=== PATIENT | male | born 1950 | race African-American/Black ===

== ENCOUNTER 2019-04-12 08:17 | Inpatient (IN) ==
[2019-04-12 09:50] LABS: Basophils % 0.7 % (0.0-0.8); Eosinophils # 0.1 10*3/uL (0.0-0.87); Eosinophils % 1.5 % (0.00-10.9); Hematocrit 41.5 VOL% (42.0-52.0); Hemoglobin 13.9 GM/DL (14.0-18.0); Immature Granulocytes % 0.7 %; Immature Granulocytes Absolute 0.03 #; Lymphocytes # 1.7 10*3/uL (1.4-4.0); Lymphocytes % 38.1 % (21.2-54.2); Mean Corpuscular HGB Conc 33.5 GM/DL (32-36); Mean Corpuscular Volume 91.8 FL (87-102); Monocytes % 9.7 % (1.7-12.7); Neutrophils % 49.3 % (38.7-73.9); Platelet Count 273 T/CUMM (130-400); Red Blood Count 4.52 MC/CUMM (3.8-5.5); Red Cell Distribution Width 13.2 % (9.3-17.3); White Blood Count 4.5 T/CUMM (4-12)
[2019-04-12 10:00] LABS: INR 0.9; PT Patient Result 9.7 SECS (9.6-12.2); Partial Thromboplastin Time 24.1 SECS (20.8-36.0)
[2019-04-12 10:30] LABS: Alanine Aminotransferase 40 U/L (16-61); Albumin 3.2 G/DL (3.4-5.0); Alkaline Phosphatase 88 U/L (45-117); Amylase 58 U/L (25-115); Aspartate Amino Transferase 16 U/L (0-37); Bilirubin,Total < 0.39 MG/DL (0.2-1.0); Blood Urea Nitrogen 12 MG/DL (7-18); Calcium 8.9 MG/DL (8.5-10.1); Estimated Glom Filtration Rate 109 ML/MIN; Glucose 216 MG/DL (74-106); Osmolality,Calculated 292.8 MOS/KG (273-304); Total Protein 7.4 G/DL (6.4-8.3)
[2019-04-12 10:38] LABS: Thyroid Stimulating Hormone 0.338 uIU/ml (0.358-3.74)
[2019-04-12 10:48] LABS: Troponin I < 0.015 NG/ML (0.00-0.045)
[2019-04-12 10:58] LABS: Acetaminophen < 2.0 UG/ML (10-30); Salicylate < 2.8 MG/DL (2.8-20)
[2019-04-12 12:08] LABS: Apearance,Urine Clear (Clear); Bilirubin,Urine Negative (Negative); Blood, Urine NEGATIVE (Negative); Glucose,Urine (UA) 500 mg/dL (Negative); Ketones,Urine Negative (Negative); Mucus,Urine Occasional /LPF (Occasional); Nitrite,Urine Positive (Negative); Protein,Urine 30 MG/DL; RBC,Urine 7 /HPF (0-4); Squamous Epithelial Cell,Urine Occasional /HPF (0-10); Urine Color Yellow (Yellow); WBC,Urine 4 /HPF (0-6)
[2019-04-12 12:28] LABS: Barbiturates Screen,Urine Negative (Negative); Benzodiazepines Screen,Urine Negative (Negative); Cannabinoid Screen,Urine Negative (Negative); Opiate Screen,Urine Negative (Negative); Phencyclidine Screen,Urine Negative (Negative)
[2019-04-12] MEDS ORDERED: hydrOXYzine HCL 25 MG/1 ML VIAL IM PRN (12:44)
[2019-04-12] MEDS ORDERED: HydrOXYzine PAMOATE 25 MG CAPSULE PO PRN (12:44)
[2019-04-12] MEDS ORDERED: ACETAMINOPHEN 325 MG TABLET PO PRN (12:47)
[2019-04-12] MEDS ORDERED: DOCUSATE SODIUM 100 MG CAPSULE PO PRN (12:47)
[2019-04-12] MEDS ORDERED: ONDANSETRON 4 MG/2 ML VIAL IV PRN (12:47)
[2019-04-12 13:27] LABS: Folate 12.8 NG/ML (5.4-24.0)
[2019-04-12] MEDS: LORazepam 1 MG TABLET PO SCH ×3 (14:37→20:35)
[2019-04-12] MEDS: cloNIDine 0.1 MG TABLET PO SCH ×2 (14:37→20:35)
[2019-04-12] MEDS: ENOXAPARIN 40 MG/0.4 ML SYRINGE SUBCUT SCH (14:37)
[2019-04-12] MEDS ORDERED: THIAMINE INJ 100 MG, FOLIC ACID INJ 1 MG, MULTIVITAMIN INJ 10 ML in SODIUM CHLORIDE 0.9... IV ONE (15:00)
[2019-04-12 16:12] LABS: Troponin I 0.023 NG/ML (0.00-0.045)
[2019-04-12] MEDS ORDERED: DEXTROSE 50% 25 GM/50 ML VIAL IV PRN (16:35)
[2019-04-12] MEDS ORDERED: GLUCAGON 1 MG VIAL IM PRN (16:35)
[2019-04-12] MEDS ORDERED: INSULIN REGULAR 100 UNIT/ML SUBCUT ONE (16:47)
[2019-04-12] MEDS: METOPROLOL TARTRATE 25 MG TABLET PO SCH (20:35)
[2019-04-12] MEDS ORDERED: INSULIN REGULAR 100 UNIT/ML SUBCUT SCH (21:00)
[2019-04-12] MEDS: INSULIN REGULAR 100 UNIT/ML SUBCUT SCH (21:55)
[2019-04-13] MEDS: LORazepam 1 MG TABLET PO SCH ×5 (01:21→21:02)
[2019-04-13 05:45] LABS: Basophils % 0.7 % (0.0-0.8); Eosinophils # 0.1 10*3/uL (0.0-0.87); Eosinophils % 2.1 % (0.00-10.9); Hematocrit 36.2 VOL% (42.0-52.0); Hemoglobin 11.6 GM/DL (14.0-18.0); Immature Granulocytes % 0.5 %; Immature Granulocytes Absolute 0.02 #; Lymphocytes # 2.1 10*3/uL (1.4-4.0); Lymphocytes % 48.4 % (21.2-54.2); Mean Corpuscular Volume 93.8 FL (87-102); Mean Platelet Volume 9.3 FL (9.6-12.0); Monocytes % 9.5 % (1.7-12.7); Neutrophils % 38.8 % (38.7-73.9); Platelet Count 263 T/CUMM (130-400); Red Blood Count 3.86 MC/CUMM (3.8-5.5); Red Cell Distribution Width 13.7 % (9.3-17.3); White Blood Count 4.3 T/CUMM (4-12)
[2019-04-13 06:11] LABS: Calcium 8.4 MG/DL (8.5-10.1); Osmolality,Calculated 287.3 MOS/KG (273-304)
[2019-04-13] MEDS: PANTOPRAZOLE 40 MG TABLET PO SCH (08:39)
[2019-04-13] MEDS: MULTIVITAMIN (CENTRUM) TABLET PO SCH (08:40)
[2019-04-13] MEDS: ASPIRIN CHEW 81 MG TABLET PO SCH (08:40)
[2019-04-13] MEDS: cloNIDine 0.1 MG TABLET PO SCH ×2 (08:40→21:03)
[2019-04-13] MEDS: lisinopriL 5 MG TABLET PO SCH (08:40)
[2019-04-13] MEDS: THIAMINE 100 MG TABLET PO SCH (08:40)
[2019-04-13] MEDS: FOLIC ACID 1 MG TABLET PO SCH (08:40)
[2019-04-13] MEDS: METOPROLOL TARTRATE 25 MG TABLET PO SCH ×2 (08:40→21:03)
[2019-04-13] MEDS: INSULIN REGULAR 100 UNIT/ML SUBCUT SCH ×4 (08:41→21:49)
[2019-04-13] MEDS: ENOXAPARIN 40 MG/0.4 ML SYRINGE SUBCUT SCH (13:44)
[2019-04-13] MEDS: cefTRIAXone 1,000 MG in SYRINGE 1 EACH IV SCH (14:49)
[2019-04-14] MEDS: LORazepam 1 MG TABLET PO SCH ×4 (01:47→21:46)
[2019-04-14 05:05] LABS: Basophils % 0.6 % (0.0-0.8); Eosinophils # 0.1 10*3/uL (0.0-0.87); Eosinophils % 2.2 % (0.00-10.9); Hematocrit 35.9 VOL% (42.0-52.0); Hemoglobin 11.8 GM/DL (14.0-18.0); Immature Granulocytes % 0.6 %; Immature Granulocytes Absolute 0.03 #; Lymphocytes # 2.3 10*3/uL (1.4-4.0); Lymphocytes % 48.9 % (21.2-54.2); Mean Corpuscular HGB Conc 32.9 GM/DL (32-36); Mean Corpuscular Volume 92.5 FL (87-102); Mean Platelet Volume 9.2 FL (9.6-12.0); Monocytes % 10.2 % (1.7-12.7); Neutrophils % 37.5 % (38.7-73.9); Platelet Count 256 T/CUMM (130-400); Red Blood Count 3.88 MC/CUMM (3.8-5.5); Red Cell Distribution Width 13.5 % (9.3-17.3); White Blood Count 4.6 T/CUMM (4-12)
[2019-04-14 05:35] LABS: Eosinophils 4 % (0-10); Lymphocytes 52 % (20-55); Ovalocytes Few; Platelet Estimate Normal; Segmented Neutrophils 35 % (50-85); Total Cells Counted 100
[2019-04-14 05:37] LABS: Calcium 8.4 MG/DL (8.5-10.1); Osmolality,Calculated 280.7 MOS/KG (273-304)
[2019-04-14] MEDS: INSULIN REGULAR 100 UNIT/ML SUBCUT SCH ×4 (08:40→21:46)
[2019-04-14] MEDS: cefTRIAXone 1,000 MG in SYRINGE 1 EACH IV SCH (08:40)
[2019-04-14] MEDS: ENOXAPARIN 40 MG/0.4 ML SYRINGE SUBCUT SCH (08:41)
[2019-04-14] MEDS: FOLIC ACID 1 MG TABLET PO SCH (08:42)
[2019-04-14] MEDS: PANTOPRAZOLE 40 MG TABLET PO SCH (08:42)
[2019-04-14] MEDS: ASPIRIN CHEW 81 MG TABLET PO SCH (08:42)
[2019-04-14] MEDS: METOPROLOL TARTRATE 25 MG TABLET PO SCH ×2 (08:42→21:46)
[2019-04-14] MEDS: MULTIVITAMIN (CENTRUM) TABLET PO SCH (08:42)
[2019-04-14] MEDS: lisinopriL 5 MG TABLET PO SCH (08:42)
[2019-04-14] MEDS: cloNIDine 0.1 MG TABLET PO SCH ×2 (08:43→21:46)
[2019-04-14] MEDS: THIAMINE 100 MG TABLET PO SCH (08:43)
[2019-04-15] MEDS: LORazepam 1 MG TABLET PO SCH (05:07)
[2019-04-15 05:38] LABS: Eosinophils # 0.1 10*3/uL (0.0-0.87); Eosinophils % 2.4 % (0.00-10.9); Hematocrit 36.6 VOL% (42.0-52.0); Hemoglobin 12.1 GM/DL (14.0-18.0); Immature Granulocytes % 0.7 %; Immature Granulocytes Absolute 0.03 #; Lymphocytes # 2.1 10*3/uL (1.4-4.0); Lymphocytes % 50.4 % (21.2-54.2); Mean Corpuscular HGB Conc 33.1 GM/DL (32-36); Mean Platelet Volume 9.5 FL (9.6-12.0); Monocytes % 11.9 % (1.7-12.7); Neutrophils % 33.6 % (38.7-73.9); Platelet Count 265 T/CUMM (130-400); Red Blood Count 3.98 MC/CUMM (3.8-5.5); Red Cell Distribution Width 13.5 % (9.3-17.3); White Blood Count 4.1 T/CUMM (4-12)
[2019-04-15 05:56] LABS: Calcium 8.3 MG/DL (8.5-10.1); Osmolality,Calculated 282.7 MOS/KG (273-304)
[2019-04-15 06:12] LABS: Eosinophils 2 % (0-10); Lymphocytes 42 % (20-55); Segmented Neutrophils 44 % (50-85); Total Cells Counted 100
[2019-04-15 06:13] LABS: Atypical Lymphocytes Few; Hypochromasia 1+; Microcytosis Slight
[2019-04-15] MEDS ORDERED: INSULIN GLARGINE 100 UNIT/ML SUBCUT SCH (09:00)
[2019-04-15] MEDS: INSULIN REGULAR 100 UNIT/ML SUBCUT SCH ×3 (09:34→18:11)
[2019-04-15] MEDS: cloNIDine 0.1 MG TABLET PO SCH (09:35)
[2019-04-15] MEDS: MULTIVITAMIN (CENTRUM) TABLET PO SCH (09:35)
[2019-04-15] MEDS: ENOXAPARIN 40 MG/0.4 ML SYRINGE SUBCUT SCH (09:35)
[2019-04-15] MEDS: PANTOPRAZOLE 40 MG TABLET PO SCH (09:35)
[2019-04-15] MEDS: ASPIRIN CHEW 81 MG TABLET PO SCH (09:35)
[2019-04-15] MEDS: THIAMINE 100 MG TABLET PO SCH (09:35)
[2019-04-15] MEDS: lisinopriL 5 MG TABLET PO SCH (09:35)
[2019-04-15] MEDS: METOPROLOL TARTRATE 25 MG TABLET PO SCH (09:36)
[2019-04-15] MEDS: FOLIC ACID 1 MG TABLET PO SCH (09:36)
[2019-04-15 16:41] VITALS: BP 113/67
== END 2019-04-15 18:45 | DRG 880 ==
LOC: N.ED 08:17 → SUATTDRO 12:43 → N.EDINP 12:43 → N.2E 13:09
PROVIDERS: ADMIT Internal Medicine; ATTEND Internal Medicine